=== PATIENT | female | born 1980 | race Two or more races ===

== ENCOUNTER 2024-11-13 11:39 | Outpatient (AMB) | payer BC, OTHER, SELFPAY ==
[2024-11-13 11:54] VITALS: BP 139/83; PULSE 98; RESP 18; TEMP 36.8; O2SAT 98; BMI 29.9
--- NOTE | 2024-11-13 11:54 | GYNCLNT_ITS ---
Vital Signs 11/13/24 11:54 Height 1.6 m Height Method Stated Weight 76.657 kg Weight Measurement Method Standing Scale BMI 29.9 BP 139/83 H Blood Pressure Source Automatic Cuff Blood Pressure Location Left Upper Arm Position Sitting Respiration 18 Pulse 98 Pulse Source Monitor Temp 98.2 F Temp Source Oral Pulse Oximetry (%) 98 Oxygen Delivery Method Room Air Allergies/Home Meds Allergies & Medications Allergies No Known Allergies Allergy (Verified 11/13/24 11:55) Medication Reconciliation norethindrone acetate 1 mg-ethinyl estradiol 20 mcg tablet 1 tab PO QDAY #63 tabs 11/13/24 [Rx] Intake Visit Data Collection New Patient or Established: New Patient (never been to 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 1. Little interest or pleasure in doing things: not at all 2. Feeling down, depressed, or hopeless: not at all Total score: 0 PHQ-9 3. Trouble falling or staying asleep, or sleeping too much: Not at all 4. Feeling tired or having little energy: Not at all 5. Poor appetite or overeating: Not at all 6. Feeling bad about yourself - or that you are a failure or have let yourself or your family down: Not at all 7. Trouble concentrating on things, such as reading the newspaper or watching television: Not at all 8. Moving or speaking so slowly that other people could have noticed? - Or the opposite - being so fidgety or restless that you have been moving around a lot more than usual: not at all 9. Thoughts that you would be better off or of hurting yourself in some way: Not at all Total score: 0 If you checked off any problems, how difficult have these problems made it for you to do your work, take care of things at home, or get along with other people?: not difficult at all Source: Developed by Drs. Idris Manning, Breanna Marie, Sherif Watt and colleagues, with an educational isa from [employer]. Depression screen completed yes Social History Living Situation History Marital Status: Lives With: Family Housing: House Tobacco History Smoking Status: Never smoker Second Hand Smoke Exposure: No Alcohol History Alcohol Intake: Never Domestic Abuse History Do You Feel Safe at Home: Yes History of Present Illness HPI Narrative 44-year-old 3 para 3 for pill refill. Patient is currently taking norethindrone at estradiol 1?20. Denies ACHES. Reports good compliance. Last. Is October 22, 2024. Patient denies social habits. She has a history of a hernia repair and previous section x 1. Patient reports good health and denies any existence of chronic health issues Review of Systems Review of Systems Systems Reviewed: All systems reviewed, normal except as documented Exam General Limitations: no limitations General Appearance: alert, in no apparent distress, comfortable, cooperative, healthy appearing, well developed and well groomed Head Head exam: atraumatic, normocephalic and normal inspection ENT ENT exam: Present normal exam, normal oropharynx and mucous membranes moist Neck Neck exam: Present normal inspection, full ROM and trachea midline Chest Chest inspection: Present normal inspection and symmetric chest wall rise Resp Respiratory exam: Present normal lung sounds bilaterally Card Cardiovascular exam: Present regular rate, normal rhythm and normal heart sounds Psych Psychiatric exam: Present normal affect and normal mood Results Objective Laboratory: negative preg test Office Procedures OB Clinic LOC & Office Proc's Nursing/Assessment Patient Status: Initial/New Patient OB Clinic Nursing Assessment: BP Monitoring, Medication Reconciliation, Update PMH in EMR and Vital Signs OB Clinic Coordination of Care: Consent,records obtained, informed consent, Education Simp Pt/Fam, Lab and Imaging orders, Results/Orders obtained and Staff clarify orders New Patient Charge New Patient Point Assignment: [id number] New Patient Point Charge: SENIOR TAX SPECIALIST Level 3 ([id number]) Results Urine HCG Urine HCG Negative Last Edit by Kim Wise MA on 11/13/24 13:39 Assessment & Plan Diagnosis / Problem List (1) Encounter for repeat prescription of oral contraceptives: Status: Acute Plan Norethandrolone at the estradiol 1?0.02 x13. Review method, side effects, consistency about control pills. Discussed ACHES. Multivitamin with folic acid in it. Discussed diet and exercise. And return in a year for refill. Pap smears in 4 years Additional Plan Follow Up: 4 Years (ocp)
== END 2024-11-13 12:12 | disposition home or self-care (01) ==
PROVIDERS: Supervising Provider Advanced Practice Midwife; Visit Provider Advanced Practice Midwife
DX: Z30.41 Encounter for surveillance of contraceptive pills (principal)
CPT/HCPCS: 99203; G0463